=== PATIENT | female | born 1965 | race Caucasian/White ===

== ENCOUNTER 2016-12-06 08:44 | Emergency (ER) | payer MEDICARE, OTHER ==
[2016-12-06 10:07] LABS: BASOPHIL 1.1 % (0-2); EOSINOPHIL 9.3 % (0-5); HCT 37.5 % (37.0-47.0); HGB 12.1 g/dl (12.5-16.0); LYMPHOCYTE 39.4 % (15-48); MCHC 32.3 g/dL (32.0-36.0); MCV 89.9 fL (78.0-100.0); MONOCYTE 7.1 % (0-12); MPV 10.6 fL (6.0-9.5); NEUTROPHIL 43.1 % (41-80); PLT 437 K/uL (150-400); RBC 4.17 M/uL (4.20-5.40); RDW 15.5 % (11.5-14.0); WBC 9.5 K/uL (4.0-10.5)
[2016-12-06 10:31] LABS: ALBUMIN 3.5 g/dL (3.5-5.0); BILIRUBIN - TOTAL 0.2 mg/dL (0.1-1.0); GLOBULIN (CALCULATION) 3.2 g/dL (2.2-4.2); POTASSIUM 3.8 mmol/L (3.5-5.1); TOTAL PROTEIN 6.7 g/dL (6.4-8.3)
== END 2016-12-06 11:07 | disposition home or self-care (01) ==
LOC: FER 08:44
PROVIDERS: Emergency Medicine
DX: J02.9 Acute pharyngitis, unspecified (principal); F17.200 Nicotine dependence, unspecified, uncomplicated; J44.9 Chronic obstructive pulmonary disease, unspecified; K21.9 Gastro-esophageal reflux disease without esophagitis; Z88.0 Allergy status to penicillin; Z91.041 Radiographic dye allergy status; Z79.899 Other long term (current) drug therapy
CPT/HCPCS: 36415; 71020; 80053; 84484; 85025; 87450; 93005; 94640

== ENCOUNTER 2020-08-08 16:23 | Emergency (ER) | payer OTHER ==
[~2020-08-08 16:23] MED LIST: AZITHROMYCIN250 MG PO; BREO ELLIPTA 11 EACH INH; CEFDINIR300 MG PO; CLARITIN10 MG PO; CYMBALTA 30MG C30 MG PO; DUONEB 2.5-0.5M1 AMP NEB; FAMCICLOVIR500 MG PO; FLEXERIL10 MG PO; GABAPENTIN800 MG PO; HYDROCODONE-APA1 TAB PO; IBUPROFEN800 MG PO; KLOR-CON M20 T20 MEQ PO; LASIX40 MG PO; LEVAQUIN750 MG PO; LISINOPRIL2.5 MG PO; MOTRIN600 MG PO; MUCUS RELIEF600 MG PO; NEXIUM 40MG CAP40 MG PO; NORCO 10-325 T1 EACH PO; NORCO 5-325 TA1 EACH PO; PREDNISONE 20MG20 MG PO; PROAIR HFA8.5 GM INH; PROMETHAZINE 2525 MG PO; PROTONIX 40MG T40 MG PO; SENNA S TABLET1 EACH PO; SEROQUEL 100MG100 MG PO; TESSALON PERLE100 M1 PO; TESSALON PERLE100 MG PO
== END 2020-08-08 18:45 | disposition home or self-care (01) ==
LOC: FER 16:23
DX: S20.211A Contusion of right front wall of thorax, initial encounter (principal); J44.9 Chronic obstructive pulmonary disease, unspecified; F17.210 Nicotine dependence, cigarettes, uncomplicated; W10.9XXA Fall (on) (from) unspecified stairs and steps, initial encounter; Y92.009 Unspecified place in unspecified non-institutional (private) residence as the place of occurrence of the external cause
CPT/HCPCS: 71101